=== PATIENT | female | born 1985 | race African-American/Black ===

== ENCOUNTER 2018-12-31 14:47 | Emergency (ER) | payer OTHER ==
[2018-12-31 14:53] VITALS: BP 112/80
[2018-12-31 15:27] LABS: U PREG PATIENT NEGATIVE (NEG)
[2018-12-31 15:46] LABS: BACTERIA,URINE FEW /HPF (0-FEW); BILIRUBIN,URINE NEG (NEG); CLARITY,URINE CLOUDY; COLOR,URINE YELLOW; GLUCOSE,URINE NEG (NEG); NITRITE,URINE NEG (NEG); RBC,URINE 0 /HPF (0-2); SQUAMOUS EPITHELIAL CELL,UR OCC /LPF; UROBILINOGEN,URINE 0.2 mg/dL (0.2 mg/dL)
[2018-12-31] MEDS ORDERED: metroNIDAZOLE 500 MG TABLET PO ONE (17:00)
[2018-12-31] MEDS ORDERED: cefTRIAXone IM 250 MG VIAL IM ONE (17:00)
[2018-12-31] MEDS ORDERED: DOXY100C2 PO (17:09)
[2018-12-31] MEDS ORDERED: METR70GE14 VG (17:09)
--- NOTE | 2018-12-31 17:09 | PHYS DOC ---
Past History Past Medical History: STD Past Surgical History: No Surgical History Alcohol Use: None Drug Use: None Adult General Chief Complaint Chief Complaint: VAGINAL PROBLEM HPI HPI Patient is a 33 year old female who presents with complaint of abnormal vaginal discharge and burning. Patient states that she started having symptoms over the past 2 days. Notes that she had unprotected sex 3 days ago. States that she has had yellowish malodorous discharge. Denies any fevers, pelvic, or abdominal pain. Has not taken any medications for symptoms. Is concerned that she may have contracted an infection from her sexual partner and thus came to the emergency department for evaluation. Review of Systems Review of Systems Constitutional: Denies fever or chills [] Eyes: Denies change in visual acuity, redness, or eye pain [] HENT: Denies nasal congestion or sore throat [] Respiratory: Denies cough or shortness of breath [] Cardiovascular: Denies chest pain or edema[] GI: Denies abdominal pain, nausea, vomiting, bloody stools or diarrhea [] : Vaginal discharge, denies hematuria or dysuria[] Musculoskeletal: Denies back pain or joint pain [] Integument: Denies rash or skin lesions [] Neurologic: Denies headache, focal weakness or sensory changes [] All other systems were reviewed and found to be within normal limits, except as documented in this note. Current Medications Current Medications Current Medications Medications (Trade) Dose Ordered Sig/[place] Start Time Stop Time Status Last Admin Dose Admin Ceftriaxone Sodium (Rocephin Im) 250 mg 1X ONCE 12/31/18 17:00 12/31/18 17:01 Metronidazole (Flagyl) 2,000 mg 1X ONCE 12/31/18 17:00 12/31/18 17:01 Allergies Allergies Allergies Coded Allergies Type Severity Reaction Last Updated Verified No Known Drug Allergies 12/31/18 No Physical Exam Physical Exam Constitutional: Well developed, well nourished, no acute distress, non-toxic appearance. [] HENT: Normocephalic, atraumatic, bilateral external ears normal, oropharynx moist, no oral exudates, nose normal. [] Eyes: PERRLA, EOMI, conjunctiva normal, no discharge. [] Neck: Normal range of motion, no tenderness, supple, no stridor. [] Cardiovascular:Heart rate regular rhythm, no murmur [] Lungs & Thorax: Bilateral breath sounds clear to auscultation [] Abdomen: Bowel sounds normal, soft, no tenderness, no masses, no pulsatile masses. : Offered but declined by patient[] Skin: Warm, dry, no erythema, no rash. [] Back: No tenderness, no CVA tenderness. [] Extremities: No tenderness, no cyanosis, no clubbing, ROM intact, no edema. [] Neurologic: Alert and oriented X 3, normal motor function, normal sensory function, no focal deficits noted. [] Current Patient Data Vital Signs Vital Signs Date Time Temp Pulse Resp B/P (MAP) Pulse Ox O2 Delivery O2 Flow Rate FiO2 12/31/18 14:53 65 15 100 Room Air Lab Results Laboratory Tests Test 12/31/18 15:06 Urine Collection Type Unknown Urine Color Yellow Urine Clarity Cloudy Urine pH 5.5 Urine Specific [place] 1.015 Urine Protein Neg (NEG-TRACE) Urine Glucose (UA) Neg mg/dL (NEG) Urine Ketones (Stick) Neg mg/dL (NEG) Urine Blood Trace (NEG) Urine Nitrite Neg (NEG) Urine Bilirubin Neg (NEG) Urine Urobilinogen Dipstick 0.2 mg/dL (0.2 mg/dL) Urine Leukocyte Esterase Large (NEG) Urine RBC 0 /HPF (0-2) Urine WBC 5-10 /HPF (0-4) Urine Squamous Epithelial Cells Occ /LPF Urine Bacteria Few /HPF (0-FEW) Urine Mucus Slight /LPF Urine Test Negative (NEG) Microbiology 12/31/18 Wet Prep - Final, Complete EKG EKG Not performed[] Radiology/Procedures Radiology/Procedures Not performed[] Course & Med Decision Making Course & Med Decision Making Pertinent Labs and Imaging studies reviewed. (See chart for details) The patient was offered a pelvic exam in the emergency department versus self swab for assessment of vaginal discharge. The patient states that she wishes to do a self swab and not do a pelvic exam at this time. This is not unreasonable as patient is not suffering any severe pelvic pain, abdominal pain, vomiting, or fever. Patient's wet prep shows evidence of trichomoniasis and bacterial vaginosis. Due to presence of sexual transmitted infection, coinfection cannot be completely ruled out at this time. Treated with 2 g of oral Flagyl and IM Rocephin. Patient will be discharged with doxycycline and MetroGel for outpatient treatment. Recommended that patient inform any sexual partners that they will need medical evaluation and treatment for sexually transmitted infection. Recommended abstaining from any sexual contact until medications have been completed. Recommended follow-up with primary doctor in 1 week for reevaluation and recommended return to emergency department for any worsening symptoms. Patient was understanding and in agreement with treatment plan.[] Dragon Disclaimer Dragon Disclaimer This electronic medical record was generated, in whole or in part, using a voice recognition dictation system. Departure Departure: Impression: Primary Impression: Trichomonas infection Additional Impressions: Bacterial vaginosis Contact with and (suspected) exposure to infections with a predominantly sexual mode of transmission Disposition: HOME, SELF-CARE Condition: STABLE Referrals: TODD LAMB [employer] (PCP) Patient Instructions: Bacterial Vaginosis, Sexually Transmitted Disease, Trichomonas, Test Additional Instructions: You have been started on treatment for sexually transmitted infection at today's visit. You received oral Flagyl antibiotic for treatment of Trichomonas in the emergency department. You will also received an injection of Rocephin to cover for possible coinfection with gonorrhea. You will be discharged with doxycycline to treat possible coinfection of chlamydia and MetroGel for treatment of bacterial vaginosis. It is recommended that you inform any sexual partners that they will need to be evaluated and treated for possible sexually transmitted infection. Avoid any sexual intercourse until you have completed the full course of treatment and your symptoms have resolved. Follow-up with your primary doctor in 1 week for reevaluation. Return to the emergency department for any worsening symptoms. Scripts Doxycycline Hyclate (DOXYCYCLINE HYCLATE) 100 Mg Capsule 1 CAP PO BID, #20 CAP Prov: BEVERLY XIE MD 12/31/18 Metronidazole (METROGEL-VAGINAL) 70 Gm Gel.w.appl 1 APPFUL VG Q, #70 GM Prov: BEVERLY XIE MD 12/31/18 Problem Qualifiers BEVERLY XIE MD Dec 31, 2018 17:09
[2019-01-02 00:07] LABS: CHLAMYDIA PROBE Negative (Negative)
== END 2018-12-31 17:35 | disposition home or self-care (01) ==
LOC: ER 14:47
DX: A59.01 Trichomonal vulvovaginitis (principal); N76.0 Acute vaginitis; B96.89 Other specified bacterial agents as the cause of diseases classified elsewhere; Z20.2 Contact with and (suspected) exposure to infections with a predominantly sexual mode of transmission
CPT/HCPCS: 81001; 81025; 87086; 87491; 87591; 96372; 99284; J0696; Q0111; 36415

== ENCOUNTER 2019-01-22 15:52 | Emergency (ER) | payer OTHER ==
[~2019-01-22] VITALS: Ht 176.5 cm; Wt 59.1 kg
[~2019-01-22 15:52] MED LIST: DOXY100C2 PO; METR70GE14 VG
[2019-01-22] MEDS ORDERED: [UNRECOGNIZED DRUG - CODE] TP (16:53)
[2019-01-22] MEDS ORDERED: HYDR-3165 PO (17:08)
--- NOTE | 2019-01-22 17:08 | PHYS DOC ---
Past History Past Medical History: STD Past Surgical History: No Surgical History Alcohol Use: None Drug Use: None Adult General Chief Complaint Chief Complaint: HEMORRHOIDS HPI HPI 33-year-old female presents with hemorrhoids. The patient states that she felt her hemorrhoids prolapse out of her rectum about 3 days ago. The pain has been increasing over this time. She left work today because the pain was just unbearable. She has had these in the past but spent several years. She's never had surgery. She tried multiple topical therapies previously. She has not been any specific therapies this time. She does not have an established surgeon. She denies fever or chills. She has no complaints. Review of Systems Review of Systems Constitutional: Denies fever or chills [] Eyes: Denies change in visual acuity, redness, or eye pain [] HENT: Denies nasal congestion or sore throat [] Respiratory: Denies cough or shortness of breath [] Cardiovascular: No additional information not addressed in HPI [] GI: Denies abdominal pain, nausea, vomiting, bloody stools or diarrhea [] : Denies dysuria or hematuria. Hemorrhoids [] Musculoskeletal: Denies back pain or joint pain [] Integument: Denies rash or skin lesions [] Neurologic: Denies headache, focal weakness or sensory changes [] Endocrine: Denies polyuria or polydipsia [] All other systems were reviewed and found to be within normal limits, except as documented in this note. Allergies Allergies Allergies Coded Allergies Type Severity Reaction Last Updated Verified No Known Drug Allergies 12/31/18 No Physical Exam Physical Exam Constitutional: Well developed, well nourished, no acute distress, non-toxic appearance. [] HENT: Normocephalic, atraumatic, bilateral external ears normal, oropharynx moist, no oral exudates, nose normal. [] Eyes: PERRLA, EOMI, conjunctiva normal, no discharge. [] Neck: Normal range of motion, no tenderness, supple, no stridor. [] Cardiovascular:Heart rate regular rhythm, no murmur [] Lungs & Thorax: Bilateral breath sounds clear to auscultation [] Abdomen: Bowel sounds normal, soft, no tenderness, no masses, no pulsatile masses. [] Skin: Warm, dry, no erythema, no rash. [] Back: No tenderness, no CVA tenderness. [] Extremities: No tenderness, no cyanosis, no clubbing, ROM intact, no edema. [] Neurologic: Alert and oriented X 3, normal motor function, normal sensory function, no focal deficits noted. [] Psychologic: Affect normal, judgement normal, mood normal. Rectal: Patient has prolapsed internal hemorrhoids likely grade 1 cm x 1.5 cm.[] Current Patient Data Vital Signs Vital Signs Date Time Temp Pulse Resp B/P (MAP) Pulse Ox O2 Delivery O2 Flow Rate FiO2 01/22/19 16:01 98.8 73 18 98 Room Air EKG EKG [] Radiology/Procedures Radiology/Procedures [] Course & Med Decision Making Course & Med Decision Making Pertinent Labs and Imaging studies reviewed. (See chart for details) Based on my exam the patient appears to have prolapsed internal hemorrhoids. I have discussed with her that these need to have a procedure done likely surgical excision. She will follow up with her insurance company and get a referral. I will discharge her with [place]aine rectal ointment as well as [place] 5/325. She is stable for discharge at this time. [] Dragon Disclaimer Dragon Disclaimer This electronic medical record was generated, in whole or in part, using a voice recognition dictation system. Departure Departure: Impression: Primary Impression: Prolapsed internal hemorrhoids, grade 3 Disposition: 01 HOME, SELF-CARE Condition: STABLE Referrals: TODD LAMB [facility] [facility] (PCP) Patient Instructions: Hemorrhoids, [id number] Scripts Hydrocodone Bit/Acetaminophen (NORCO 5-325 TABLET) 1 Each Tablet 1 TAB PO PRN Q6HRS PRN for PAIN, #14 TAB 0 Refills Prov: ORION MONTANEZ DO 01/22/19 Benzocaine (AMERICAINE) 28 Gm Oint...g. 28 GM TP Q4HRS PRN for RECTAL PAIN for 4 Days, #1 TUBE Use sparingly, only apply a small amount each time you use this medication. Prov: ORION MONTANEZ DO 01/22/19 ORION MONTANEZ DO Jan 22, 2019 17:08
[2019-01-22 17:40] VITALS: BP 121/61
== END 2019-01-22 17:56 | disposition home or self-care (01) ==
LOC: ER 15:52
DX: K64.2 Third degree hemorrhoids (principal)
CPT/HCPCS: 99283

== ENCOUNTER 2019-01-27 12:11 | Emergency (ER) | payer OTHER ==
[~2019-01-27 12:11] MED LIST changes: +HYDR-3165 PO; +[UNRECOGNIZED DRUG - CODE] TP
[2019-01-27] MEDS ORDERED: LIDOCAINE 5% TOPICAL OINTMENT 35GM TUBE. TP ONE (12:45)
[2019-01-27] MEDS ORDERED: HYDR30CR61 TP (13:00)
[2019-01-27] MEDS ORDERED: daflon PO (13:00)
--- NOTE | 2019-01-27 13:00 | PHYS DOC ---
Past History Past Medical History: STD, Other Additional Past Medical Histor: hemorrhoids Past Surgical History: No Surgical History Smoking: Cigarettes Alcohol Use: None Drug Use: None Adult General Chief Complaint Chief Complaint: OTHER COMPLAINTS HPI HPI Patient is a rectal pain that started this morning. Denies any bleeding. This happened as she was sitting down to use the restroom. She was seen approximately a week ago for internal hemorrhoids that had prolapsed and was doing better since that time. She has not yet made an appointment for follow-up. She denies any rectal bleeding, no vaginal discharge. Denies any trauma. Describes the sensation as a burning sensation.[] Review of Systems Review of Systems Constitutional: Denies fever or chills [] Eyes: Denies change in visual acuity, redness, or eye pain [] HENT: Denies nasal congestion or sore throat [] Respiratory: Denies cough or shortness of breath [] Cardiovascular: No chest pain or palpitations[] GI: Denies abdominal pain, nausea, vomiting, bloody stools or diarrhea, see history of present illness [] : Denies dysuria or hematuria [] Musculoskeletal: Denies back pain or joint pain [] Integument: Denies rash or skin lesions [] Neurologic: Denies headache, focal weakness or sensory changes [] Endocrine: Denies polyuria or polydipsia [] All other systems were reviewed and found to be within normal limits, except as documented in this note. Allergies Allergies Allergies Coded Allergies Type Severity Reaction Last Updated Verified No Known Drug Allergies 12/31/18 No Physical Exam Physical Exam Constitutional: Well developed, well nourished, no acute distress, non-toxic appearance. [] HENT: Normocephalic, atraumatic, bilateral external ears normal, oropharynx moist, no oral exudates, nose normal. [] Eyes: PERRLA, EOMI, conjunctiva normal, no discharge. [] Neck: Normal range of motion, no tenderness, supple, no stridor. [] Cardiovascular:Heart rate regular rhythm, no murmur [] Lungs & Thorax: Bilateral breath sounds clear to auscultation [] Abdomen: Bowel sounds normal, soft, no tenderness, no masses, no pulsatile masses. Rectal exam performed with senior engineering technician: No external hemorrhoids noted. No significant rashes or lesions. No thrombosed hemorrhoid.[] Skin: Warm, dry, no erythema, no rash. [] Back: No tenderness, no CVA tenderness. [] Extremities: No tenderness, no cyanosis, no clubbing, ROM intact, no edema. [] Neurologic: Alert and oriented X 3, normal motor function, normal sensory function, no focal deficits noted. [] Psychologic: Affect normal, judgement normal, mood normal. [] Current Patient Data Vital Signs Vital Signs Date Time Temp Pulse Resp B/P (MAP) Pulse Ox O2 Delivery O2 Flow Rate FiO2 01/27/19 12:19 98.2 81 18 98 Room Air EKG EKG [] Radiology/Procedures Radiology/Procedures [] Course & Med Decision Making Course & Med Decision Making Pertinent Labs and Imaging studies reviewed. (See chart for details) Medical decision making: Patient with rectal pain and eructation. Being treated for internal hemorrhoids. We will treat with a flavonoid cream. Rectal nitrates and calcium channel seth treatments are contraindicated given her relatively low blood pressure in the 90s systolic.[] Dragon Disclaimer Dragon Disclaimer This electronic medical record was generated, in whole or in part, using a voice recognition dictation system. Departure Departure: Impression: Primary Impression: Rectal pain Disposition: HOME, SELF-CARE Condition: IMPROVED Referrals: TODD LAMB [facility] (PCP) Follow-up in 2 days Patient Instructions: Hemorrhoids, Sitz Bath Additional Instructions: Drink plenty of fluids. Keep the area meticulously clean, utilizing a sitz bath 4 times a day and after each bowel movement. Follow-up with your regular doctor in 2 days. Make the appointment with the GI specialist. Return to the ER if worsening pain, no bleeding, or any other concerns. Scripts [daflon] No Conflict Check 500 MG PO as directed for hemorrhoids for 7 Days, TAB 6 tablets daily for 4 days Then 4 tablets daily for 3 days Prov: ISAI TROTTER DO 01/27/19 Hydrocortisone (ANUSOL-HC) 30 Gm Cream..g. 1 ESTHELA TP BID for rectal pain/hemorrhoids, #30 GM Prov: ISAI TROTTER DO 01/27/19 ISAI TROTTER DO Jan 27, 2019 13:00
[2019-01-27 13:15] VITALS: BP 107/63
== END 2019-01-27 13:27 | disposition home or self-care (01) ==
LOC: ER 12:11
DX: K62.89 Other specified diseases of anus and rectum (principal); F17.210 Nicotine dependence, cigarettes, uncomplicated
CPT/HCPCS: 99283